=== PATIENT | male | born 1985 | race Caucasian/White ===

== ENCOUNTER 2016-11-14 11:44 | Emergency (ER) | payer MEDICAID ==
[~2016-11-14] VITALS: Ht 180.3 cm; Wt 87.1 kg
[2016-11-14 11:50] VITALS: BP_SYST 123
[2016-11-14] MEDS ORDERED: KETOROLAC TROMETHAMINE 60 MG/2 ML VIAL IM ONE (13:45)
[2016-11-14 15:22] VITALS: BP_SYST 123
== END 2016-11-14 15:22 | disposition home or self-care (01) ==
LOC: SED 11:44
DX: L03.011 Cellulitis of right finger (principal); M79.644 Pain in right finger(s)
CPT/HCPCS: 29130; 73130; 96372; 99284; J1885

== ENCOUNTER 2018-12-18 20:42 | Emergency (ER) | payer MEDICAID ==
[~2018-12-18] VITALS: Ht 180.3 cm; Wt 93.0 kg
[2018-12-18 20:55] VITALS: BP_SYST 142; BP_SYST 166
[2018-12-18 21:34] VITALS: BP_SYST 126
== END 2018-12-18 21:34 | disposition home or self-care (01) ==
LOC: SED 20:42
DX: R21 Rash and other nonspecific skin eruption (principal); F17.200 Nicotine dependence, unspecified, uncomplicated
CPT/HCPCS: 99282

== ENCOUNTER 2019-04-01 13:43 | Emergency (ER) | payer OTHER, MEDICAID ==
[~2019-04-01] VITALS: Ht 180.3 cm; Wt 90.7 kg
[2019-04-01 14:33] VITALS: BP_SYST 134
--- NOTE | 2019-04-01 14:35 | NUR ---
PT TO WR.
[2019-04-01] MEDS ORDERED: ONDANSETRON 4 MG ODT TAB PO ONE (14:45)
[2019-04-01] MEDS ORDERED: ACETAMINOPHEN 500 MG TABLET PO ONE (14:45)
--- NOTE | 2019-04-01 17:25 | NUR ---
Patient to ER bed H1 to gown for evaluation. Side rails up.
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
[2019-04-01 18:07] VITALS: BP_SYST 128
--- NOTE | 2019-04-01 18:07 | NUR ---
Patient given written and verbal discharge instructions and verbalizes understanding. ER MD discussed with patient the results and treatment provided. Patient in stable condition. ID arm band removed. Rx of ZOFRAN,MOTRIN,FLEXERIL given. Patient educated on pain management and to follow up with PMD. Pain Scale 2 Opportunity for questions provided and answered. Medication side effect fact sheet provided.
== END 2019-04-01 18:09 | disposition home or self-care (01) ==
LOC: SED 13:43
DX: S16.1XXA Strain of muscle, fascia and tendon at neck level, initial encounter (principal); S46.912A Strain of unspecified muscle, fascia and tendon at shoulder and upper arm level, left arm, initial encounter; R07.89 Other chest pain; F07.81 Postconcussional syndrome; R03.0 Elevated blood-pressure reading, without diagnosis of hypertension; F17.200 Nicotine dependence, unspecified, uncomplicated; Z71.6 Tobacco abuse counseling; V43.52XA Car driver injured in collision with other type car in traffic accident, initial encounter; Y92.413 State road as the place of occurrence of the external cause; Y93.89 Activity, other specified; Y99.8 Other external cause status
CPT/HCPCS: 70450-TC; 71046-TC; 73030; 99284